=== PATIENT | female | born 1990 | race Caucasian/White ===

== ENCOUNTER 2017-05-09 22:35 | Emergency (ER) | payer OTHER ==
[~2017-05-09] VITALS: Ht 167.6 cm; Wt 64.9 kg
[2017-05-09 22:55] VITALS: Ht 167.6 cm; Wt 64.9 kg
[2017-05-09 23:40] VITALS: BP 126/78
== END 2017-05-09 23:40 | disposition home or self-care (01) ==
LOC: ED 22:35
DX: S05.01XA Injury of conjunctiva and corneal abrasion without foreign body, right eye, initial encounter (principal); X58.XXXA Exposure to other specified factors, initial encounter; Y93.89 Activity, other specified; Y99.8 Other external cause status; Y92.89 Other specified places as the place of occurrence of the external cause